=== PATIENT | female | born 1950 | race Caucasian/White ===

== ENCOUNTER 2024-12-23 12:30 | Outpatient (CLI) | payer MEDICARE ==
[2024-12-23 13:39] LABS: Estimated GFR - POC 59.0
== END 2024-12-23 12:31 | disposition home or self-care (01) ==
LOC: CSHMRI 12:30
PROVIDERS: ATTEND Family Medicine
DX: R41.82 Altered mental status, unspecified (principal); F03.90 Unspecified dementia, unspecified severity, without behavioral disturbance, psychotic disturbance, mood disturbance, and anxiety; R51.9 Headache, unspecified; G31.9 Degenerative disease of nervous system, unspecified; R90.82 White matter disease, unspecified
CPT/HCPCS: 36415; 70553; 76376; 82565